=== PATIENT | male | born 1960 | race Caucasian/White ===

== ENCOUNTER 2018-04-08 12:49 | Emergency (ER) | payer OTHER ==
[~2018-04-08] VITALS: Ht 182.9 cm; Wt 113.4 kg
[~2018-04-08 12:49] MED LIST: AMLODIPINE BESY10 MG; ASPIR 8181 MG; BENAZEPRIL HCL20 MG; HYDROCHLOROTHIA25 GM; MOBIC7.5 MG
[2018-04-08] MEDS ORDERED: MORPHINE SULFATE INJ 4 MG/ML INJ IV ONE (13:15)
[2018-04-08] MEDS ORDERED: ONDANSETRON HCL INJ 2 MG/ML VIAL IV STA (13:15)
[2018-04-08] MEDS ORDERED: GABAPENTIN100 MG PO (14:21)
[2018-04-08] MEDS ORDERED: NORCO 10-325 T1 EACH PO (14:21)
[2018-04-08] MEDS ORDERED: CYCLOBENZAPRINE10 MG PO (14:21)
[2018-04-08] MEDS ORDERED: VERAPAMIL ER120 MG PO (14:21)
--- NOTE | 2018-04-08 14:31 | Diagnostic Imaging Report ---
EXAM: XR CHEST 1 VIEW DATE: 04/08/2018 12:00 AM INDICATION: Pain COMPARISON: None FINDINGS: Lines and Tubes: None Heart and Mediastinum: Cardiomediastinal silhouette and liane accentuated by low lung volumes. Lungs and Pleura: Streaky opacities statistically atelectasis. Bones and Soft Tissues: No acute findings. IMPRESSION: 1. No acute cardiopulmonary findings. Signed by: Dr. Micheal Bishop MD on 04/08/2018 2:27 PM
--- NOTE | 2018-04-08 14:39 | Diagnostic Imaging Report ---
EXAM: CT Abdomen and Pelvis WITH contrast INDICATION: Pain COMPARISON: None. TECHNIQUE: Abdomen and Pelvis was scanned utilizing a multidetector helical scanner after administration of IV contrast. Coronal and sagittal reformations were obtained. IV CONTRAST: 100 mL Isovue-370 COMPLICATIONS: None RADIATION DOSE: Total DLP:850 mGy*cm Estimated effective dose: (DLP x 0.015 x size factor) mSv CTDIvol has been reviewed. It is below the limits set by the Radiation Protocol Committee (RPC). Appropriate CT dose reduction techniques were utilized. FINDINGS: Abdomen: Lung Bases: Ill-defined opacities lung bases statistically atelectasis. Solid Organs: Decreased attenuation of the liver consistent with steatosis. Cholecystectomy clips present. Cyst and to small to characterize hypodensity left kidney. Otherwise, liver, adrenals, kidneys, spleen, and pancreas unremarkable. No renal or ureteral calculi. Upper GI Tract: Decompressed stomach limits evaluation. Fluid-filled loops of small bowel with no evidence of obstruction. Vascularity: No aortic aneurysm. Lymph Nodes: No suspicious adenopathy. Other: None. Pelvis: Bladder: Unremarkable. Other: Transverse diameter prostate 50 mm. Colon: Moderate diverticulosis of the colon. Questionable trace stranding sigmoid region. Appendix not inflamed. No fluid collection. Bones: Moderate degenerative changes with Schmorl's node superior and inferior endplate L2 and moderate endplate degenerative changes L4-5. IMPRESSION: 1. Moderate diverticulosis with trace diverticulitis suspected. No abscess identified. 2. Moderate hepatic steatosis. 3. Fluid-filled loops of small bowel, nonspecific. Findings can be seen in the setting of gastroenteritis. Signed by: Dr. Micheal Bishop MD on 04/08/2018 2:35 PM
[2018-04-08 16:04] VITALS: BP 138/91
== END 2018-04-08 16:06 | disposition home or self-care (01) ==
LOC: FSED 12:49
DX: K52.9 Noninfective gastroenteritis and colitis, unspecified (principal); R11.0 Nausea; K57.32 Diverticulitis of large intestine without perforation or abscess without bleeding
CPT/HCPCS: 71045; 74177; 80053; 84484; 85025; 93005; 96374; 96375; 99283; J2270; J2405